=== PATIENT | female | born 1960 | race American Indian/Alaskan Native ===

== ENCOUNTER 2018-03-27 22:40 | Emergency (ER) | payer MEDICAID ==
[2018-03-27] MEDS ORDERED: HYDROmorphone 0.5 MG/0.5 ML Syringe IVPUSH ONE (22:46)
--- NOTE | 2018-03-27 22:50 | EDM.PDOC ---
ED HPI GENERAL MEDICAL PROBLEM - General Chief Complaint: Lower Extremity Injury/Pain Stated Complaint: AMBULANCE-HIP PAIN Time Seen by Provider: 03/27/18 22:48 Source of Information: Reports: Patient History Limitations: Reports: No Limitations - History of Present Illness INITIAL COMMENTS - FREE TEXT/NARRATIVE: states turned and lost balance fell onto left hip. denies head/neck pain-injury no LOC, admits to drinking. states had pelvic fracture as a teen. Left Hip Pain Score (Numeric/FACES): 9 - Related Data Allergies Allergy/AdvReac Type Severity Reaction Status Date / Time aspirin Allergy Other Verified 03/27/18 22:42 Home Meds: Home Meds Albuterol Sulfate [Proventil Hfa] 2 puff INH ASDIRECTED PRN 03/27/18 [History] Warfarin Sodium [Coumadin] 7 mg PO DAILY 03/27/18 [History] metFORMIN [Glucophage] 500 mg PO DAILY 03/27/18 [History] Review of Systems - Review of Systems Review Of Systems: ROS reveals no pertinent complaints other than HPI. ED EXAM, GENERAL - Physical Exam Exam: See Below Exam Limited By: No Limitations General Appearance: Alert, WD/WN, Mild Distress, Moderate Distress, Other ( crying with pain) Eye Exam: Bilateral Eye: PERRL (pupils ER @ 4mm) Ears: Normal External Exam, Normal Canal, Hearing Grossly Normal, Normal TMs Throat/Mouth: Normal Voice, No Airway Compromise Head: Atraumatic Neck: Non-Tender, Full Range of Motion Respiratory/Chest: No Respiratory Distress Cardiovascular: Regular Rate, Rhythm GI/Abdominal: Soft, Non-Tender Extremities: Other (left hip pain, LLE NV wnl) Neurological: Alert, Oriented, Normal Cognition, No Motor/Sensory Deficits Psychiatric: Tearful Skin Exam: Warm, Dry, Normal Color Lymphatic: No Adenopathy Course - Vital Signs Last Recorded V/S: Last Vital Signs Temp 37.1 C 03/27/18 22:44 Pulse 98 03/27/18 22:44 Resp 20 03/27/18 22:44 BP 150/89 H 03/27/18 22:44 Pulse Ox 95 03/27/18 22:44 - Orders/Labs/Meds Orders: Active Orders 24 hr Category Date Time Status Pelvis wo Cont [CT] Urgent Exams 03/27/18 22:47 Taken Labs: Laboratory Tests 0803/27/18 03/27/18 Range/Units 22:54 22:54 22:54 WBC 9.3 (5.0-10.0) 10^3/uL RBC 4.04 L (4.2-5.4) 10^6/uL Hgb 12.5 (12.0-16.0) g/dL Hct 35.8 L (37.0-47.0) % MCV 88.6 (80-100) fL MCH 30.9 (27.0-34.0) pg MCHC 34.9 (33.0-35.0) g/dL Plt Count 347 (150-450) 10^3/uL Neut % (Auto) 55.8 (42.2-75.2) % Lymph % (Auto) 33.3 (20.5-50.1) % [place] % (Auto) 10.3 H (2-8) % Eos % (Auto) 0.3 L (1.0-3.0) % Baso % (Auto) 0.3 (0.0-1.0) % PT 8.8 L (9.0-12.0) SEC INR 0.9 (0.9-1.2) Sodium 130 L (135-145) mmol/L Potassium 3.3 L (3.6-5.0) mmol/L Chloride 94 L (101-111) mmol/L Carbon Dioxide 22.0 (21.0-31.0) mmol/L Anion Gap 17.3 BUN 18 (7-18) mg/dL Creatinine 0.6 (0.6-1.3) mg/dL Est Cr Clr Drug Dosing 80.50 mL/min Estimated GFR (MDRD) > 60 BUN/Creatinine Ratio 30.00 Glucose 531 H* (74-105) mg/dL Calcium 9.1 (8.4-10.2) mg/dl Total Bilirubin 0.4 (0.2-1.0) mg/dL AST 36 (10-42) IU/L ALT 37 (10-60) IU/L Alkaline Phosphatase 94 (42-121) IU/L Total Protein 8.1 (6.7-8.2) g/dl Albumin 3.5 (3.2-5.5) g/dl Globulin 4.6 Albumin/Globulin Ratio 0.76 Ethyl Alcohol 184 mg/dL Meds: Medications Discontinued Medications Generic Name Dose Route Start Last Admin Trade Name Marybeth PRN Reason Stop Dose Admin Hydromorphone HCl 1 mg 03/27/18 22:46 03/27/18 22:52 Dilaudid IVPUSH 03/27/18 22:47 1 mg ONETIME ONE Administration Insulin Human Regular 10 unit 03/27/18 23:33 03/27/18 23:40 Humulin R IV 03/27/18 23:34 10 units ONETIME ONE Administration - Re-Assessments/Exams Free Text/Narrative Re-Assessment/Exam: 03/27/18 23:53 case discussed with GF and Dr High ortho kindly accepted pt. Departure - Departure Time of Disposition: 23:54 Disposition: DC/Tfer to Acute Hospital 02 Condition: Fair Clinical Impression: Intertrochanteric fracture, hip - Discharge Information Forms: Interfacility Transfer EMTALA - My Orders Last 24 Hours: My Active Orders 03/27/18 22:47 Pelvis wo Cont [CT] Urgent - Assessment/Plan Last 24 Hours: My Active Orders 03/27/18 22:47 Pelvis wo Cont [CT] Urgent
[2018-03-27 23:19] LABS: ANION GAP 17.3; CHLORIDE,CL 94 mmol/L (101-111); SODIUM,NA 130 mmol/L (135-145)
[2018-03-27] MEDS ORDERED: Insulin Regular, Human 100 Units/ML 3 ML Vial IV ONE (23:33)
[2018-03-28] MEDS ORDERED: HYDROmorphone 0.5 MG/0.5 ML Syringe IVPUSH ONE (00:24)
== END 2018-03-28 00:36 ==
LOC: DL.ED 22:40
DX: S72.142A Displaced intertrochanteric fracture of left femur, initial encounter for closed fracture (principal); Z88.8 Allergy status to other drugs, medicaments and biological substances; W19.XXXA Unspecified fall, initial encounter
CPT/HCPCS: 36415; 72192; 80053; 82962; 85025; 85610; 96374; 96375; 96376; 99285; G0480; J1170; J1815

== ENCOUNTER 2018-04-01 10:06 | Inpatient (IN) | payer MEDICAID ==
[2018-04-01] MEDS ORDERED: Albuterol 6.7 GM Inhaler INH PRN (14:33)
[2018-04-01] MEDS ORDERED: Ondansetron 4 MG Tab.DIS PO PRN (14:45)
--- NOTE | 2018-04-01 14:52 | PCM.HP ---
H&P History of Present Illness - General Date of Service: 04/01/18 Admit Problem/Dx: Admission Diagnosis/Problem Admission Diagnosis/Problem Hip fracture, intertrochanteric Source of Information: Patient, Old Records - History of Present Illness Initial Comments - Free Text/Narative: The patient is a 57-year-old lady with a history of COPD, diabetes, prior DVT. The patient fell and was admitted to [facility] and underwent left hip surgery for displaced left femur fracture. The patient was transferred for further physical and occupational therapy She has moderate pain in the left hip, since the fall, worse with activity, better with rest and medications. No associated fever or chills. Left Hip Pain Score (Numeric/FACES): 9 - Related Data Allergies/Adverse Reactions: Allergies Allergy/AdvReac Type Severity Reaction Status Date / Time ciprofloxacin [From Cipro] Allergy Unknown Other Verified 04/01/18 12:54 aspirin Allergy Other Verified 04/01/18 12:54 erythromycin base Allergy Other Verified 04/01/18 12:54 ibuprofen Allergy Other Verified 04/01/18 12:54 Home Medications: Home Meds Albuterol Sulfate [Proventil Hfa] 2 puff INH ASDIRECTED PRN 03/27/18 [History] Acetaminophen [Acetaminophen Extra Strength] 1,000 mg PO Q8HR PRN 04/01/18 [ History] Apixaban [Eliquis] 10 mg PO BID 04/01/18 [History] Insulin Glarg,Human.Rec.Analog [Lantus] 15 unit SUBCUT BEDTIME 04/01/18 [History ] Insulin Lispro [Humalog] 3 unit SQ TIDAC 04/01/18 [History] oxyCODONE 5 mg PO Q4HR PRN 04/01/18 [History] traMADol [Ultram] 100 mg PO Q6H PRN 04/01/18 [History] Past Medical History HEENT History: Reports: None Cardiovascular History: Reports: Blood Clots/VTE/DVT Respiratory History: Reports: Asthma Gastrointestinal History: Reports: None Genitourinary History: Reports: None [employer] History: Reports: Musculoskeletal History: Reports: Arthritis Neurological History: Reports: None Psychiatric History: Reports: Addiction, Anxiety Endocrine/Metabolic History: Reports: Diabetes, Type II Hematologic History: Reports: None Immunologic History: Reports: None Oncologic (Cancer) History: Reports: None Dermatologic History: Reports: None - Infectious Disease History Infectious Disease History: Reports: Hepatitis C - Past Surgical History HEENT Surgical History: Reports: None Cardiovascular Surgical History: Reports: None Respiratory Surgical History: Reports: None GI Surgical History: Reports: None Female Surgical History: Reports: Hysterectomy Endocrine Surgical History: Reports: None Neurological Surgical History: Reports: None Musculoskeletal Surgical History: Reports: Hip Replacement, Knee Replacement, Other (See Below) Other Musculoskeletal Surgeries/Procedures:: right knee , left knee 1986, left hip 03/30/18 Oncologic Surgical History: Reports: None Dermatological Surgical History: Reports: None Social & Family History - Family History Family Medical History: Noncontributory - Tobacco Use Smoking Status *Q: Light Tobacco Smoker Years of Tobacco use: 10 Packs/Tins Daily: 0.1 Used Tobacco, but Quit: No Second Hand Smoke Exposure: No - Caffeine Use Caffeine Use: Reports: Coffee, Soda, Tea - Recreational Drug Use Recreational Drug Use: No H&P Review of Systems - Review of Systems: Review Of Systems: See Below General: Denies: Fever Pulmonary: Denies: Shortness of Breath Cardiovascular: Denies: Chest Pain Musculoskeletal: Reports: Leg Pain (Left hip) Exam - Exam Exam: See Below - Vital Signs Vital Signs: Last Vital Signs Temp 36.7 C 04/01/18 13:06 Pulse 82 04/01/18 13:06 Resp 20 04/01/18 13:06 BP 117/70 04/01/18 13:06 Pulse Ox 100 04/01/18 13:06 Weight: 56.064 kg - Exam General: Alert, Oriented Neck: Supple Lungs: Clear to Auscultation, Normal Respiratory Effort Cardiovascular: Regular Rate, Regular Rhythm GI/Abdominal Exam: Normal Bowel Sounds, Soft, Non-Tender Extremities: No Pedal Edema - Problem List (1) Hyponatremia SNOMED Code(s): 83191942 ICD Code: E87.1 - HYPO-OSMOLALITY AND HYPONATREMIA Status: Acute Current Visit: Yes (2) COPD (chronic obstructive pulmonary disease) SNOMED Code(s): 17729219 ICD Code: J44.9 - CHRONIC OBSTRUCTIVE PULMONARY DISEASE, UNSPECIFIED Status : Acute Current Visit: Yes (3) Diabetes SNOMED Code(s): 84948823 ICD Code: E11.9 - TYPE 2 DIABETES MELLITUS WITHOUT COMPLICATIONS Status: Acute Current Visit: Yes (4) Intertrochanteric fracture, hip SNOMED Code(s): 293295532 ICD Code: S72.143A - DISPLACED INTERTROCHANTERIC FRACTURE OF UNSP FEMUR, INIT Status: Acute Current Visit: No Problem List Initiated/Reviewed/Updated: Yes Orders Last 24hrs: Active Orders 24 hr Category Date Time Status Patient Status [ADT] Routine ADT 04/01/18 14:45 Active Glucose [Blood Glucose Check, Bedside] [RC] QIDACANDBED Care 04/01/18 14:33 Active Oxygen Therapy [RC] PRN Care 04/01/18 14:45 Active Up With Assistance [RC] ASDIRECTED Care 04/01/18 14:45 Active VTE/DVT Education [RC] PER UNIT ROUTINE Care 04/01/18 14:45 Active Vital Signs [RC] QSHIFT Care 04/01/18 14:45 Active OT Evaluation and Treatment [CONS] Routine Cons 04/01/18 14:32 Active PT Evaluation and Treatment [CONS] Routine Cons 04/01/18 14:32 Active Consistent Carbohydrate Diet [DIET] Diet 04/01/18 Dinner Active BASIC METABOLIC PANEL,BMP [CHEM] AM Lab 04/04/18 05:15 Ordered CBC WITH AUTO DIFF [HEME] AM Lab 04/04/18 05:15 Ordered Acetaminophen [Tylenol Extra Strength] Med 04/01/18 14:33 Ordered 1,000 mg PO Q8HR PRN Albuterol [Proventil HFA] Med 04/01/18 14:33 Ordered DOSE gm INH ASDIRECTED PRN Apixaban [Eliquis] Med 04/01/18 21:00 Ordered 10 mg PO BID Docusate Sodium [Colace] Med 04/01/18 14:45 Ordered 100 mg PO BID PRN Insulin Aspart [NovoLOG] Med 04/01/18 14:45 Ordered See Protocol SUBCUT .QID AC+HS Insulin Glarg,Human.Rec.Analog [Lantus] Med 04/01/18 21:00 Ordered 15 unit SUBCUT BEDTIME Insulin Lispro [Humalog] Med 04/01/18 17:00 Ordered 3 unit SQ TIDAC Non-Formulary Medication [NF Drug] Med 04/06/18 08:00 Ordered 5 each PO BID Ondansetron [Zofran ODT] Med 04/01/18 14:45 Ordered 4 mg PO Q6H PRN Zolpidem [Ambien] Med 04/01/18 14:45 Ordered 5 mg PO BEDTIME PRN oxyCODONE Med 04/01/18 14:33 Ordered 5 mg PO Q4HR PRN Antiembolic Hose [OM.PC] Per Unit Routine Oth 04/01/18 14:46 Ordered Resuscitation Status Routine Resus Stat 04/01/18 14:45 Ordered Medication Orders Acetaminophen (Tylenol Extra Strength) 1,000 mg PO Q8HR PRN PRN Reason: Pain Albuterol (Proventil Hfa) gm INH ASDIRECTED PRN PRN Reason: Shortness of Breath Docusate Sodium (Colace) 100 mg PO BID PRN PRN Reason: Constipation Insulin Aspart (Novolog) 0 unit SUBCUT .QID AC+HS [facility]; Protocol Non-Formulary Medication (Apixaban [Eliquis]) 10 mg PO BID [facility] Stop: 04/05/18 22:00 Non-Formulary Medication (Insulin Glarg,Human.Rec.Analog [Lantus]) 15 unit SUBCUT BEDTIME [facility] Non-Formulary Medication (Insulin Lispro [Humalog]) 3 unit SQ TIDAC [facility] Non-Formulary Medication (Nf Drug) 5 each PO BID [facility] Ondansetron HCl (Zofran Odt) 4 mg PO Q6H PRN PRN Reason: nausea, able to take PO Oxycodone HCl (Oxycodone) 5 mg PO Q4HR PRN PRN Reason: Pain Zolpidem Tartrate (Ambien) 5 mg PO BEDTIME PRN PRN Reason: Sleep Assessment/Plan Comment:: # Displaced left femur fracture s/p gamma nail. - oxycodone for pain - PT/OT #Uncontrolled type 2 diabetes: hemoglobin A1c was 11% on admission. Reported noncompliance with diabetic medications. - Continue Lantus 15 units at bedtime. - Humalog 3 units with meals. 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 Repeat doppler on this admission shows persistent DVTs. Patient was non-adherent to warfarin therapy. Has been started on eliquis. - continue Eliquis 10 mg BID (04/05/2018) then start on Eliquis 5 mg PO BID. # COPD and tobacco dependence: - use albuterol prn - smoking cessation counseling provided. # normocytic anemia: postoperative acute blood loss anemia - check CBC in a few days. # Hyponatremia: Na of 135 on presentation; mild - Check BMP in 3 days.
[2018-04-01] MEDS: Insulin Aspart 100 Units/ML 3 ML Pen SUBCUT SCH ×4 (14:54→20:47)
[2018-04-01] MEDS: oxyCODONE 5 MG Tab PO PRN ×2 (15:01→20:33)
[2018-04-01] MEDS: Acetaminophen 500 MG Tab PO PRN (17:49)
[2018-04-01] MEDS: [UNRECOGNIZED DRUG - REMARK] PO SCH (20:33)
[2018-04-01] MEDS: Zolpidem 5 MG Tab PO PRN (20:35)
[2018-04-01] MEDS: Insulin Detemir 100 Units/ML 3 ML Pen SUBCUT SCH (20:42)
[2018-04-02] MEDS: oxyCODONE 5 MG Tab PO PRN ×6 (00:27→20:58)
[2018-04-02] MEDS: [UNRECOGNIZED DRUG - REMARK] PO SCH ×2 (08:25→21:01)
[2018-04-02] MEDS: Insulin Aspart 100 Units/ML 3 ML Pen SUBCUT SCH ×7 (08:25→21:00)
[2018-04-02] MEDS: Docusate Sodium 100 MG Cap PO PRN (18:15)
[2018-04-02] MEDS: Acetaminophen 500 MG Tab PO PRN (18:15)
[2018-04-02] MEDS: Zolpidem 5 MG Tab PO PRN (20:57)
[2018-04-02] MEDS: Insulin Detemir 100 Units/ML 3 ML Pen SUBCUT SCH (20:59)
[2018-04-03] MEDS: oxyCODONE 5 MG Tab PO PRN ×5 (03:14→19:45)
[2018-04-03] MEDS: Docusate Sodium 100 MG Cap PO PRN (07:34)
[2018-04-03] MEDS: Insulin Aspart 100 Units/ML 3 ML Pen SUBCUT SCH ×7 (07:38→21:05)
[2018-04-03] MEDS: [UNRECOGNIZED DRUG - REMARK] PO SCH ×2 (09:01→21:05)
[2018-04-03] MEDS: Acetaminophen 500 MG Tab PO PRN ×2 (13:47→21:04)
[2018-04-03] MEDS ORDERED: Polyethylene Glycol 3350 Powder 17 GM Packet PO PRN (18:19)
[2018-04-03] MEDS: Zolpidem 5 MG Tab PO PRN (21:03)
[2018-04-03] MEDS: Docusate Sodium 100 MG Cap PO SCH (21:03)
[2018-04-03] MEDS: Insulin Detemir 100 Units/ML 3 ML Pen SUBCUT SCH (21:06)
[2018-04-04] MEDS: oxyCODONE 5 MG Tab PO PRN ×5 (04:59→21:34)
[2018-04-04 07:05] LABS: ANION GAP 9.9; CHLORIDE,CL 102 mmol/L (101-111); SODIUM,NA 135 mmol/L (135-145)
[2018-04-04] MEDS: Docusate Sodium 100 MG Cap PO SCH (08:25)
[2018-04-04] MEDS: Insulin Aspart 100 Units/ML 3 ML Pen SUBCUT SCH ×7 (08:25→21:30)
[2018-04-04] MEDS: [UNRECOGNIZED DRUG - REMARK] PO SCH ×2 (08:25→21:32)
[2018-04-04] MEDS: Acetaminophen 500 MG Tab PO PRN (15:31)
[2018-04-04] MEDS: Insulin Detemir 100 Units/ML 3 ML Pen SUBCUT SCH (21:29)
[2018-04-04] MEDS: Zolpidem 5 MG Tab PO PRN (21:32)
[2018-04-05] MEDS: Acetaminophen 500 MG Tab PO PRN ×3 (01:32→17:32)
[2018-04-05] MEDS: oxyCODONE 5 MG Tab PO PRN ×6 (01:33→21:31)
[2018-04-05] MEDS: Insulin Aspart 100 Units/ML 3 ML Pen SUBCUT SCH ×7 (08:22→21:30)
[2018-04-05] MEDS: [UNRECOGNIZED DRUG - REMARK] PO SCH ×2 (09:18→21:29)
[2018-04-05] MEDS: Docusate Sodium 100 MG Cap PO SCH (09:21)
--- NOTE | 2018-04-05 11:15 | PCM.PN ---
- General Info Date of Service: 04/05/18 Admission Dx/Problem (Free Text): Admission Diagnosis/Problem Admission Diagnosis/Problem Hip fracture, intertrochanteric Functional Status: Reports: Pain Controlled, Tolerating Diet - Review of Systems General: Denies: Fever, Weakness Pulmonary: Denies: Shortness of Breath Cardiovascular: Denies: Chest Pain, Edema Genitourinary: Denies: Hematuria - Patient Data Vitals - Most Recent: Last Vital Signs Temp 36.7 C 04/05/18 08:11 Pulse 78 04/05/18 08:11 Resp 20 04/05/18 08:11 BP 110/59 L 04/05/18 08:11 Pulse Ox 98 04/05/18 08:11 Weight - Most Recent: 56.064 kg I&O - Last 24 Hours: Intake & Output 04/04/18 04/05/18 04/05/18 22:59 06:59 14:59 Intake Total 1140 360 Balance 1140 360 Lab Results Last 24 Hours: Laboratory Results - last 24 hr 04/04/18 04/04/18 04/05/18 Range/Units 17:06 20:26 07:48 POC Glucose 175 H 323 H 78 (70-105) mg/dl 04/05/18 Range/Units 11:00 POC Glucose 115 H (70-105) mg/dl Med Orders - Current: Current Medications Acetaminophen (Tylenol Extra Strength) 1,000 mg PO Q8HR PRN PRN Reason: Pain Last Admin: 04/05/18 09:22 Dose: 1,000 mg Albuterol (Proventil Hfa) 0 gm INH Q4H PRN PRN Reason: Shortness of Breath Docusate Sodium (Colace) 100 mg PO DAILY [facility] Last Admin: 04/05/18 09:21 Dose: 100 mg Insulin Aspart (Novolog) 0 unit SUBCUT ACBED [facility]; Protocol Last Admin: 04/05/18 11:05 Dose: Not Given Insulin Aspart (Novolog) 3 unit SUBCUT TIDAC [facility] Last Admin: 04/05/18 09:19 Dose: 3 units Insulin Detemir (Levemir) 15 unit SUBCUT BEDTIME [facility] Last Admin: 04/04/18 21:29 Dose: 15 units Apixaban [Eliquis] (5mg Non-Form Med) 10 mg PO BID [facility] Stop: 04/05/18 22:00 Last Admin: 04/05/18 09:18 Dose: 10 mg Apixaban [Eliquis] (5mg Non-Form Med) 0 each PO BID [facility] Ondansetron HCl (Zofran Odt) 4 mg PO Q6H PRN PRN Reason: nausea, able to take PO Oxycodone HCl (Oxycodone) 5 mg PO Q4HR PRN PRN Reason: Pain Last Admin: 04/05/18 09:21 Dose: 5 mg Polyethylene Glycol (Miralax) 17 gm PO DAILY PRN PRN Reason: Constipation Last Admin: 04/03/18 18:38 Dose: 17 gm Zolpidem Tartrate (Ambien) 5 mg PO BEDTIME PRN PRN Reason: Sleep Last Admin: 04/04/18 21:32 Dose: 5 mg Discontinued Medications Docusate Sodium (Colace) 100 mg PO BID PRN PRN Reason: Constipation Last Admin: 04/03/18 07:34 Dose: 100 mg - Exam General: Alert, Oriented Neck: Supple Lungs: Clear to Auscultation, Normal Respiratory Effort Extremities: No Pedal Edema Skin: Other (multiple ulcers) - Problem List & Annotations (1) Hyponatremia SNOMED Code(s): 38457473 Code(s): E87.1 - HYPO-OSMOLALITY AND HYPONATREMIA Status: Acute Current Visit: Yes (2) COPD (chronic obstructive pulmonary disease) SNOMED Code(s): 42672248 Code(s): J44.9 - CHRONIC OBSTRUCTIVE PULMONARY DISEASE, UNSPECIFIED Status : Acute Current Visit: Yes (3) Diabetes SNOMED Code(s): 88002420 Code(s): E11.9 - TYPE 2 DIABETES MELLITUS WITHOUT COMPLICATIONS Status: Acute Current Visit: Yes (4) Intertrochanteric fracture, hip SNOMED Code(s): 518861778 Code(s): S72.143A - DISPLACED INTERTROCHANTERIC FRACTURE OF UNSP FEMUR, INIT Status: Acute Current Visit: No - Problem List Review Problem List Initiated/Reviewed/Updated: Yes - My Orders Last 24 Hours: My Active Orders 04/06/18 08:00 Non-Formulary Medication [NF Drug] 0 each PO BID - Plan Plan:: # Displaced left femur fracture s/p gamma nail. - oxycodone for pain - PT/OT #Uncontrolled type 2 diabetes: hemoglobin A1c was 11% on admission. Reported noncompliance with diabetic medications. BSs are variable - Continue Lantus 15 units at bedtime. - Humalog 3 units with meals. 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 Repeat doppler on this admission shows persistent DVTs. Patient was non-adherent to warfarin therapy. Has been started on eliquis. - continue Eliquis 5 mg PO BID. # COPD and tobacco dependence: - use albuterol prn - smoking cessation counseling provided. # normocytic anemia: postoperative acute blood loss anemia - check CBC in a few days. # Hyponatremia: Na of 135 on presentation; mild - Check BMP in a few days.
[2018-04-05] MEDS: Insulin Detemir 100 Units/ML 3 ML Pen SUBCUT SCH (21:29)
[2018-04-05] MEDS: Zolpidem 5 MG Tab PO PRN (21:31)
[2018-04-06] MEDS: Acetaminophen 500 MG Tab PO PRN ×3 (01:31→18:04)
[2018-04-06] MEDS: oxyCODONE 5 MG Tab PO PRN ×6 (01:32→22:21)
[2018-04-06] MEDS: Insulin Aspart 100 Units/ML 3 ML Pen SUBCUT SCH ×7 (09:36→21:04)
[2018-04-06] MEDS: [UNRECOGNIZED DRUG - REMARK] PO SCH ×3 (09:38→21:06)
[2018-04-06] MEDS: Docusate Sodium 100 MG Cap PO SCH (09:38)
[2018-04-06] MEDS: Insulin Detemir 100 Units/ML 3 ML Pen SUBCUT SCH (21:02)
[2018-04-06] MEDS: Zolpidem 5 MG Tab PO PRN (22:23)
[2018-04-07] MEDS: oxyCODONE 5 MG Tab PO PRN ×3 (05:50→21:08)
[2018-04-07] MEDS: Insulin Aspart 100 Units/ML 3 ML Pen SUBCUT SCH ×7 (07:32→21:13)
[2018-04-07] MEDS: Docusate Sodium 100 MG Cap PO SCH ×2 (07:35→11:14)
[2018-04-07] MEDS: Acetaminophen 500 MG Tab PO PRN ×2 (07:35→18:11)
[2018-04-07] MEDS: [UNRECOGNIZED DRUG - REMARK] PO SCH ×2 (11:33→21:00)
[2018-04-07] MEDS: Insulin Detemir 100 Units/ML 3 ML Pen SUBCUT SCH (21:11)
[2018-04-07] MEDS: Zolpidem 5 MG Tab PO PRN (21:13)
[2018-04-08] MEDS: oxyCODONE 5 MG Tab PO PRN ×4 (06:27→21:09)
[2018-04-08] MEDS: Insulin Aspart 100 Units/ML 3 ML Pen SUBCUT SCH ×7 (08:15→22:23)
[2018-04-08] MEDS: Acetaminophen 500 MG Tab PO PRN ×2 (08:38→18:18)
[2018-04-08] MEDS: Docusate Sodium 100 MG Cap PO SCH (08:38)
[2018-04-08] MEDS: [UNRECOGNIZED DRUG - REMARK] PO SCH ×2 (08:38→22:20)
[2018-04-08] MEDS: Zolpidem 5 MG Tab PO PRN (22:20)
[2018-04-08] MEDS: Insulin Detemir 100 Units/ML 3 ML Pen SUBCUT SCH (22:21)
[2018-04-09] MEDS: oxyCODONE 5 MG Tab PO PRN ×5 (04:29→21:35)
[2018-04-09] MEDS: Docusate Sodium 100 MG Cap PO SCH (08:21)
[2018-04-09] MEDS: [UNRECOGNIZED DRUG - REMARK] PO SCH ×2 (08:22→21:36)
[2018-04-09] MEDS: Insulin Aspart 100 Units/ML 3 ML Pen SUBCUT SCH ×7 (09:26→21:34)
[2018-04-09] MEDS: Acetaminophen 500 MG Tab PO PRN (12:13)
[2018-04-09] MEDS ORDERED: Albuterol 6.7 GM Inhaler INH PRN (19:26)
[2018-04-09] MEDS: Insulin Detemir 100 Units/ML 3 ML Pen SUBCUT SCH (21:32)
[2018-04-10] MEDS: oxyCODONE 5 MG Tab PO PRN ×5 (01:15→21:11)
[2018-04-10] MEDS: Docusate Sodium 100 MG Cap PO SCH (08:22)
[2018-04-10] MEDS: [UNRECOGNIZED DRUG - REMARK] PO SCH ×2 (08:24→21:11)
[2018-04-10] MEDS: Insulin Aspart 100 Units/ML 3 ML Pen SUBCUT SCH ×8 (08:28→21:12)
[2018-04-10] MEDS: Acetaminophen 500 MG Tab PO PRN ×2 (08:44→16:57)
[2018-04-10] MEDS: Insulin Detemir 100 Units/ML 3 ML Pen SUBCUT SCH (21:12)
[2018-04-11] MEDS: oxyCODONE 5 MG Tab PO PRN ×4 (02:39→17:21)
[2018-04-11] MEDS: Insulin Aspart 100 Units/ML 3 ML Pen SUBCUT SCH ×7 (08:11→20:37)
[2018-04-11] MEDS: Docusate Sodium 100 MG Cap PO SCH (08:15)
[2018-04-11] MEDS: [UNRECOGNIZED DRUG - REMARK] PO SCH ×2 (08:16→21:31)
[2018-04-11] MEDS: Acetaminophen 500 MG Tab PO PRN ×2 (11:06→20:32)
[2018-04-11] MEDS: Insulin Detemir 100 Units/ML 3 ML Pen SUBCUT SCH (20:38)
[2018-04-12] MEDS: oxyCODONE 5 MG Tab PO PRN ×4 (03:16→21:22)
[2018-04-12] MEDS: Insulin Aspart 100 Units/ML 3 ML Pen SUBCUT SCH ×7 (08:17→21:18)
[2018-04-12] MEDS: Docusate Sodium 100 MG Cap PO SCH (08:42)
[2018-04-12] MEDS: [UNRECOGNIZED DRUG - REMARK] PO SCH ×2 (10:11→21:36)
[2018-04-12] MEDS: Insulin Detemir 100 Units/ML 3 ML Pen SUBCUT SCH (21:20)
[2018-04-13] MEDS: oxyCODONE 5 MG Tab PO PRN ×4 (02:13→20:55)
[2018-04-13] MEDS: Insulin Aspart 100 Units/ML 3 ML Pen SUBCUT SCH ×7 (07:46→21:45)
[2018-04-13] MEDS: [UNRECOGNIZED DRUG - REMARK] PO SCH ×3 (07:47→20:57)
[2018-04-13] MEDS: Docusate Sodium 100 MG Cap PO SCH ×2 (07:47→08:45)
[2018-04-13] MEDS: Acetaminophen 500 MG Tab PO PRN (07:57)
[2018-04-13] MEDS: Insulin Detemir 100 Units/ML 3 ML Pen SUBCUT SCH (21:42)
[2018-04-13] MEDS: Zolpidem 5 MG Tab PO PRN (21:46)
[2018-04-14] MEDS: oxyCODONE 5 MG Tab PO PRN ×5 (03:13→21:47)
[2018-04-14] MEDS: Insulin Aspart 100 Units/ML 3 ML Pen SUBCUT SCH ×7 (08:23→21:19)
[2018-04-14] MEDS: Docusate Sodium 100 MG Cap PO SCH (08:26)
[2018-04-14] MEDS: [UNRECOGNIZED DRUG - REMARK] PO SCH ×2 (08:26→20:19)
[2018-04-14] MEDS: Acetaminophen 500 MG Tab PO PRN ×2 (10:21→20:17)
[2018-04-14] MEDS: Insulin Detemir 100 Units/ML 3 ML Pen SUBCUT SCH (21:17)
[2018-04-14] MEDS: Zolpidem 5 MG Tab PO PRN (21:47)
[2018-04-15] MEDS: oxyCODONE 5 MG Tab PO PRN ×3 (04:25→15:08)
[2018-04-15] MEDS: Insulin Aspart 100 Units/ML 3 ML Pen SUBCUT SCH ×4 (08:41→13:01)
[2018-04-15] MEDS: Docusate Sodium 100 MG Cap PO SCH (09:12)
[2018-04-15] MEDS: [UNRECOGNIZED DRUG - REMARK] PO SCH (09:15)
--- NOTE | 2018-04-15 12:56 | PCM.DCSUM1 ---
Discharge Summary - Discharge Data Discharge Date: 04/15/18 Discharge Disposition: Home, Self-Care 01 Condition: Good - Patient Summary/Data Consults: Consultations 04/01/18 14:32 OT Evaluation and Treatment [CONS] Routine PT Evaluation and Treatment [CONS] Routine - Patient Instructions Diet: Heart Healthy Diet Activity: As Tolerated Wound/Incision Care: Keep Operative Site/Wound Site Clean and Dry Notify Provider of: Fever, Increased Pain, Swelling and Redness, Drainage, Nausea and/or Vomiting - Discharge Plan Home Medications: Home Meds Albuterol Sulfate [Proventil Hfa] 2 puff INH ASDIRECTED PRN 03/27/18 [History] Acetaminophen [Acetaminophen Extra Strength] 1,000 mg PO Q8HR PRN 04/01/18 [ History] Apixaban [Eliquis] 10 mg PO BID 04/01/18 [History] Insulin Glarg,Human.Rec.Analog [Lantus] 15 unit SUBCUT BEDTIME 04/01/18 [History ] Insulin Lispro [Humalog] 3 unit SQ TIDAC 04/01/18 [History] oxyCODONE 5 mg PO Q4HR PRN 04/01/18 [History] traMADol [Ultram] 100 mg PO Q6H PRN 04/01/18 [History] - Discharge Summary/Plan Comment DC Time >30 min.: Yes - General Info Date of Service: 04/15/18 Admission Dx/Problem (Free Text: Admission Diagnosis/Problem Admission Diagnosis/Problem Hip fracture, intertrochanteric Subjective Update: Patient admitted with displaced left femur fracture s/p gamma nail for PT/OT. Patient has done well with therapy and is being discharge home. She will require front wheel walker to assist with ambulation. She will follow up with orthopedic. Functional Status: Reports: Pain Controlled - Review of Systems General: Reports: No Symptoms HEENT: Reports: No Symptoms Pulmonary: Reports: No Symptoms Cardiovascular: Reports: No Symptoms Gastrointestinal: Reports: No Symptoms Genitourinary: Reports: No Symptoms Musculoskeletal: Reports: No Symptoms Skin: Reports: No Symptoms Neurological: Reports: No Symptoms Psychiatric: Reports: No Symptoms - Patient Data Vitals - Most Recent: Last Vital Signs Temp 98 F 04/15/18 08:22 Pulse 76 04/15/18 08:22 Resp 18 04/15/18 08:22 BP 120/69 04/15/18 08:22 Pulse Ox 100 04/15/18 08:22 Weight - Most Recent: 119 lb I&O - Last 24 hours: Intake & Output 04/14/18 04/15/18 04/15/18 22:59 06:59 14:59 Intake Total 840 450 560 Balance 840 450 560 Lab Results - Last 24 hrs: Laboratory Results - last 24 hr 04/14/18 04/14/18 04/15/18 Range/Units 17:05 21:02 07:56 POC Glucose 177 H 208 H 69 L (70-105) mg/dl 04/15/18 Range/Units 11:10 POC Glucose 117 H (70-105) mg/dl Med Orders - Current: Current Medications Acetaminophen (Tylenol Extra Strength) 1,000 mg PO Q8HR PRN PRN Reason: Pain Last Admin: 04/14/18 20:17 Dose: 1,000 mg Albuterol (Proventil Hfa) 0 gm INH Q4H PRN PRN Reason: Shortness of Breath Albuterol (Proventil Hfa) 0 gm INH QID PRN PRN Reason: Cough Docusate Sodium (Colace) 100 mg PO DAILY [facility] Last Admin: 04/15/18 09:12 Dose: 100 mg Insulin Aspart (Novolog) 0 unit SUBCUT ACBED [facility]; Protocol Last Admin: 04/15/18 08:41 Dose: Not Given Insulin Aspart (Novolog) 3 unit SUBCUT TIDAC [facility] Last Admin: 04/15/18 09:14 Dose: Not Given Insulin Detemir (Levemir) 15 unit SUBCUT BEDTIME [facility] Last Admin: 04/14/18 21:17 Dose: 15 units Apixaban [Eliquis] (5mg Non-Form Med) 0 each PO BID [facility] Last Admin: 04/15/18 09:15 Dose: 1 each Ondansetron HCl (Zofran Odt) 4 mg PO Q6H PRN PRN Reason: nausea, able to take PO Oxycodone HCl (Oxycodone) 5 mg PO Q4HR PRN PRN Reason: Pain Last Admin: 04/15/18 09:12 Dose: 5 mg Polyethylene Glycol (Miralax) 17 gm PO DAILY PRN PRN Reason: Constipation Last Admin: 04/03/18 18:38 Dose: 17 gm Zolpidem Tartrate (Ambien) 5 mg PO BEDTIME PRN PRN Reason: Sleep Last Admin: 04/14/18 21:47 Dose: 5 mg Discontinued Medications Docusate Sodium (Colace) 100 mg PO BID PRN PRN Reason: Constipation Last Admin: 04/03/18 07:34 Dose: 100 mg Apixaban [Eliquis] (5mg Non-Form Med) 10 mg PO BID [facility] Stop: 04/05/18 22:00 Last Admin: 04/05/18 21:29 Dose: 10 mg - Exam General: Reports: Alert, Oriented HEENT: Reports: Pupils Equal, Pupils Reactive, EOMI, Mucous Membr. Moist/[place] Neck: Reports: Supple Lungs: Reports: Clear to Auscultation, Normal Respiratory Effort Cardiovascular: Reports: Regular Rate, Regular Rhythm GI/Abdominal Exam: Normal Bowel Sounds, Soft, Non-Tender, No Organomegaly, No Distention, No Abnormal Bruit, No Mass, Pelvis Stable (Female) Exam: Normal External Exam, Normal Speculum Exam, Normal Bimanual Exam Rectal (Female) Exam: Normal Exam, Normal Rectal Tone Back Exam: Reports: Normal Inspection, Full Range of Motion Extremities: Normal Inspection, Normal Range of Motion, Non-Tender, No Pedal Edema, Normal Capillary Refill Skin: Reports: Warm, Dry, Intact Wound/Incisions: Reports: Healing Well Neurological: Reports: No New Focal Deficit Psy/Mental Status: Reports: Alert, Normal Affect, Normal Mood
== END 2018-04-15 16:00 | disposition home or self-care (01) | DRG 560 ==
LOC: UNDOADMIN 12:41 → DL.MS 12:41 → EEVIPCON 14:45
PROVIDERS: ADMIT Internal Medicine; ATTEND Internal Medicine
DX: S72.142D Displaced intertrochanteric fracture of left femur, subsequent encounter for closed fracture with routine healing (principal); E87.1 Hypo-osmolality and hyponatremia; W19.XXXD Unspecified fall, subsequent encounter; E11.65 Type 2 diabetes mellitus with hyperglycemia; Z91.14 Patient's other noncompliance with medication regimen; Z86.718 Personal history of other venous thrombosis and embolism; F17.210 Nicotine dependence, cigarettes, uncomplicated; D64.9 Anemia, unspecified; B19.20 Unspecified viral hepatitis C without hepatic coma; M19.90 Unspecified osteoarthritis, unspecified site; Z98.890 Other specified postprocedural states; Z88.1 Allergy status to other antibiotic agents; Z79.899 Other long term (current) drug therapy; Z79.4 Long term (current) use of insulin; Z79.01 Long term (current) use of anticoagulants; Z96.653 Presence of artificial knee joint, bilateral; Z88.8 Allergy status to other drugs, medicaments and biological substances; Z88.6 Allergy status to analgesic agent
CPT/HCPCS: 36415; 80048; 82962; 85025; 94010; 97110-GO; 97110-GP; 97116-GP; 97162-GP; 97166-GO; 97530-GO; 97535-GO; A9270-GY; J1815-GY

== ENCOUNTER 2022-08-11 16:08 | Emergency (ER) | payer MEDICAID ==
[2022-08-11] MEDS ORDERED: Sodium Chloride 0.9% 10 ML Syringe FLUSH PRN (17:17)
[2022-08-11] MEDS ORDERED: fentaNYL 100 MCG/2 ML SDV IVPUSH ONE ×2 (17:18→22:59)
[2022-08-11] MEDS ORDERED: diphenhydrAMINE 50 MG/ML SDV IVPUSH ONE (17:18)
[2022-08-11] MEDS ORDERED: Ondansetron 4 MG/2 ML SDV IV ONE (17:18)
[2022-08-11] MEDS ORDERED: Sodium Chloride 0.9% 1,000 ML IV ONE ×3 (17:18→22:01)
[2022-08-11 18:06] LABS: CHLORIDE,CL 99 mmol/L (98-107); SODIUM,NA 137 mmol/L (136-145)
[2022-08-11 18:15] LABS: ESTIMATED GFR 55 mL/min (>=60)
[2022-08-11] MEDS ORDERED: Potassium Chloride 20 MEQ in Premix Bag 1 BAG IV ONE (18:57)
[2022-08-11] MEDS ORDERED: Meropenem 1 GM in Sodium Chloride 0.9% 100 ML IV ONE (18:58)
[2022-08-11 19:27] LABS: CORONAVIRUS COVID-19 NAA NEGATIVE (NEGATIVE); RESPIRATORY SYNCYTIAL VIR NAA NEGATIVE (NEGATIVE)
[2022-08-11] MEDS ORDERED: Acetaminophen 500 MG Tab PO ONE (19:34)
[2022-08-11] MEDS ORDERED: Norepinephrine 4 MG in Dextrose 5% in Water 246 ML IV SCH ×4 (22:00)
[2022-08-11] MEDS ORDERED: Norepinephrine Bit/D5W Premix 250 ML ONE (22:03)
== END 2022-08-11 23:11 ==
LOC: DL.ED 16:08
DX: A41.9 Sepsis, unspecified organism (principal); R65.20 Severe sepsis without septic shock; I96 Gangrene, not elsewhere classified; J45.909 Unspecified asthma, uncomplicated; E11.9 Type 2 diabetes mellitus without complications; Z20.822 Contact with and (suspected) exposure to COVID-19; Z79.01 Long term (current) use of anticoagulants; Z79.899 Other long term (current) drug therapy; Z88.1 Allergy status to other antibiotic agents; Z88.6 Allergy status to analgesic agent; Z79.4 Long term (current) use of insulin; Z90.710 Acquired absence of both cervix and uterus
CPT/HCPCS: 0241U; 36415; 51702; 80053; 80307; 83605; 84145; 85025; 85651; 86140; 87040; 96361; 96365; 96366; 96367; 96368; 96375; 96376; 99284; 99285; A9270; J1200; J2185; J2405; J3010; J3370; J3480; J3490; J7030; J7050